=== PATIENT | female | born 1990 | race Caucasian/White ===

== ENCOUNTER 2018-12-16 20:15 | Emergency (ER) | payer MEDICAID, OTHER ==
[~2018-12-16] VITALS: Ht 160 cm; Wt 78.6 kg
[2018-12-16 20:19] VITALS: BP 123/67; PULSE 77; RESP 16; Ht 160 cm; Wt 78.6 kg
--- NOTE | 2018-12-16 22:24 | ERD ---
ER Documentation Chief Complaint Chief Complaint pt reports R eye pain x 5 days HPI 28-year-old female, previously healthy, presents to the emergency department, complaining of 5 days with right eye irritation, associated with yellowish discharge, and lack of pruritus. The patient denies blurred vision, no fever, n o chills, no foreign body sensation, no headache, no fever. ROS All systems reviewed and are negative except as per history of present illness. Medications Home Meds Active Scripts Ibuprofen* (Motrin*) 400 Mg Tab, 400 MG PO Q6H PRN for PAIN AND OR ELEVATED TEMP for 5 Days, #30 TAB Prov:GRIS GILLESPIE MD 12/16/18 Polymyxin B Sulfate-TMP* (Polymyxin B-TMP Eye Drops*) 10 Ml Drops, 1 DROP RIGHT EYE QID for 7 Days, EA Prov:GRIS GILLESPIE MD 12/16/18 Allergies Allergies: Coded Allergies: No Known Allergy (Unverified , 12/16/18) PMhx/Soc Medical and Surgical Hx: pt denies Medical Hx, pt denies Surgical Hx Hx Alcohol Use: No Hx Substance Use: No Hx Tobacco Use: No Smoking Status: Never smoker FmHx Family History: No diabetes, No coronary disease Physical Exam Vitals Vital Signs Date Temp Pulse Resp B/P (MAP) Pulse Ox O2 O2 Flow FiO2 Time Delivery Rate 12/16/18 98.4 77 16 123/67 95 20:19 (85) Physical Exam Const: No acute distress Head: Atraumatic Eyes: Right eye: Normal Conjunctiva, PERRLA, EOMI, anterior chamber clear, no corneal lesions. Left eye normal ENT: Normal External Ears, Nose and Mouth. Neck: Full range of motion. No meningismus. Resp: Clear to auscultation bilaterally Cardio: Regular rate and rhythm, no murmurs Abd: Soft, non tender, non distended. Normal bowel sounds Skin: No petechiae or rashes Back: No midline or flank tenderness Ext: No cyanosis, or edema Neur: Awake and alert Psych: Normal Mood and Affect Procedures/MDM Differential diagnosis include but not limited to: infection bact erial/viral/fungal, iritis, scleritis, corneal abrasion, allergies, foreign body, glaucoma. Physical examination and clinical presentation consistent most likely with conjunctivitis. During the ED course the patient remained stable, no new complaints. Clinical impression discussed with patient who agrees with management. The patient is stable to be treated outpatient and will be discharged home; Some side effects of prescribed medications (headache, rash, nausea, vomiting, diarrhea, interactions with other medications) were reviewed. The patient was instructed to follow up with the primary care provider in the next 48h. If symptoms persist, worsen or new symptoms develop, then patient should return to the ED immediately. Disclaimer: Inadvertent spelling and grammatical errors are likely due to EHR/dictation software use and do not reflect on the overall quality of patient care. Also, please note that the electronic time recorded on this note does not necessarily reflect the actual time of the patient encounter. Departure Diagnosis: Primary Impression: Conjunctivitis, right eye Condition: Stable Additional Instructions: Muchas arnoldo por [facility] para montes servicio. Esperamos que en montes visita a la christian de emergencia montes problema medico haya sido solucionado y que se sienta mucho mejor. Para estar seguros que montes mejoria sigue en proceso, le pedimos el favor de hacer krystian bharath de seguimiento medico con montes doctor primario en los proximos 2-4 [place]. Lleve con usted estos documentos y las medicinas recetadas. Si luisa sintomas empeoran, NO SE ESPERE, por favor regrese a christian de emergencia INMEDIATAMENTE. En ralph que usted no tenga un mdico de atencin primaria: Llame al mdico o clnica comunitaria de referencia que aparece abajo yoselin las horas de consultorio para hacer krystian bharath para que le vean. CLINICAS: [facility] [phone] [facility] [phone] [facility] [phone] [facility] [phone] [facility] [phone] [id number] [facility]. [phone] GRIS VALLEJO MD Dec 16, 2018 22:23
[2018-12-16] MEDS ORDERED: POLY10DR19 RIGHT EYE (22:27)
[2018-12-16] MEDS ORDERED: IBUP-1561 PO (22:27)
== END 2018-12-16 22:53 | disposition home or self-care (01) ==
LOC: FTE 20:15
DX: H10.9 Unspecified conjunctivitis (principal)
CPT/HCPCS: 99283